=== PATIENT | male | born 1990 | race Caucasian/White ===

== ENCOUNTER 2018-07-30 07:34 | Emergency (ER) | payer BC, MEDICAID ==
[2018-07-30 07:48] VITALS: BP 132/66
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
== END 2018-07-30 10:30 | disposition home or self-care (01) ==
LOC: UCCORT 07:34
DX: S49.92XA Unspecified injury of left shoulder and upper arm, initial encounter (principal); R56.9 Unspecified convulsions; Z88.1 Allergy status to other antibiotic agents; Z79.899 Other long term (current) drug therapy; X58.XXXA Exposure to other specified factors, initial encounter; Y92.9 Unspecified place or not applicable
CPT/HCPCS: 99211; G0463

== ENCOUNTER 2018-10-26 23:06 | Observation (INO) | payer BC, MEDICAID ==
[2018-10-27 00:18] LABS: Hematocrit 44 % (42-52); Hemoglobin 15.2 g/dL (14.0-18.0); Mean Corpuscular HGB Conc 35 g/dL (31-36); Mean Corpuscular Hemoglobin 29 pg (27-31); Mean Corpuscular Volume 83 fL (80-94); Mean Platelet Volume 7.1 fL (7.4-10.4); Platelet Count 237 10^3/uL (150-450); Red Blood Count 5.25 10^6 /uL (4.18-5.48); Red Cell Distribution Width 14 % (10.5-15)
[2018-10-27 00:26] LABS: Activated Partial Thrombo Time 33.5 seconds (26.0-36.3); INR 1.2 (0.82-1.09)
[2018-10-27 00:32] LABS: Albumin 4.4 g/dL (3.2-5.2); Albumin/Globulin Ratio 1.3 (1-3); BUN/Creatinine Ratio 8.3 (8-20); Calcium 9.6 mg/dL (8.6-10.3); EGFR African American 111.3 (>60); Globulin 3.4 g/dL (2-4); Potassium 3.2 mmol/L (3.5-5.0); Total Bilirubin 0.5 mg/dL (0.2-1.0); Total Protein 7.8 g/dL (6.4-8.9)
[2018-10-27 01:19] LABS: ABS Basophils 0.1 10^3/ul (0-0.2); ABS Eosinophils 0.2 10^3/ul (0-0.6); ABS Lymphocytes 2.7 10^3/ul (1.0-4.8); ABS Monocytes 0.7 10^3/ul (0-0.8); ABS Neutrophils 3.4 10^3/ul (1.5-7.7); Eosinophil % 2.4 %; Lymphocyte % 38.2 %; Nucleated Red Blood Cells % 0.3
[2018-10-27] MEDS ORDERED: NS 0.9% 1000 ML** 1,000 ML IV ONE (01:30)
[2018-10-27] MEDS ORDERED: Morphine 4 MG/ML VIAL (1 ml) 4 MG/ML VIAL IV ONE (01:30)
[2018-10-27] MEDS ORDERED: Metoclopramide IV* 5 MG/ML 2 ML VIAL IV SLOW PU ONE (01:31)
[2018-10-27] MEDS ORDERED: Potassium Chlor TAB* 20 MEQ TAB.ER PO ONE (01:31)
[2018-10-27 01:43] LABS: C Reactive Protein 13.37 mg/L (<8.01)
[2018-10-27] MEDS ORDERED: Ondansetron INJ* 2 MG/ML VIAL IV ONE (02:22)
--- NOTE | 2018-10-27 02:39 | ED ---
Abdominal Pain/Male - HPI Summary HPI Summary: The patient is a 28 year old male who is presenting to the [facility] with chief complaints of abd pain along with Hematochezia. The patient reports of two episodes of hematochezia on 10/26/18. As per triage report, he also describes abnormal bowel movements for the past few days. The pain is described to be diffuse. Patient is currently on anti-seizure medication. PSHx does not include any hx regarding the patient's abd. He denies fevers at home. Symptoms are aggravated by nothing. Symptoms are alleviated by nothing. Pain is rated to be 7 /10 in severity. - History of Current Complaint Chief Complaint: EDGIBleed Stated Complaint: BLOOD IN STOOL PER PT Time Seen by Provider: 10/27/18 01:18 Hx Obtained From: Patient Onset/Duration: Sudden Onset, Still Present Severity Initially: Moderate Severity Currently: Moderate Pain Intensity: 7 Pain Scale Used: 0-10 Numeric Aggravating Factor(s): Nothing Alleviating Factor(s): Nothing Associated Signs And Symptoms: Positive: Negative - Allergies/Home Medications Allergies/Adverse Reactions: Allergies Allergy/AdvReac Type Severity Reaction Status Date / Time azithromycin Allergy Hives Verified 10/26/18 23:13 Home Medications: Home Medications Bacillus Coagulans [Ra Probiotic Gummies] 1 chw PO DAILY WITH MEAL 10/27/18 [ History Confirmed 10/27/18] Cyanocobalamin INJ * [Vitamin B12 INJ *] 1,000 mcg IM Q10D 10/27/18 [History Confirmed 10/27/18] Ergocalciferol CAP* [Drisdol CAP*] 50,000 unit PO WEEKLY 10/27/18 [History Confirmed 10/27/18] PMH/Surg Hx/FS Hx/Imm Hx Endocrine/Hematology History: Denies: Hx Diabetes Cardiovascular History: Denies: Hx Hypertension, Hx Pacemaker/ICD History: Denies: Hx Renal Disease Sensory History: Denies: Hx Hearing Aid Psychiatric History: Denies: Hx Panic Disorder - Surgical History Surgery Procedure, Year, and Place: TONSILS Infectious Disease History: No Infectious Disease History: Denies: Traveled Outside the [place] in Last 30 Days - Family History Known Family History: Positive: Non-Contributory Family History: Reviewed and Noncontributory - Social History Occupation: Employed Full-time Lives: With Family Alcohol Use: None Substance Use Type: Reports: None Smoking Status (MU): Never Smoked Tobacco Type: Smokeless Tobacco Amount Used/How Often: 1 can/day Review of Systems Negative: Fever Eyes: Negative ENT: Negative Cardiovascular: Negative Respiratory: Negative Gastrointestinal: Other - Hematochezia Positive: Abdominal Pain, Other - abnormal bowel movements Genitourinary: Negative Musculoskeletal: Negative Skin: Negative Neurological: Negative Psychological: Normal All Other Systems Reviewed And Are Negative: Yes Physical Exam - Summary Physical Exam Summary: VITAL SIGNS: Reviewed. GENERAL: Patient is a well-developed and nourished (MALE) who is lying comfortable in the stretcher. Patient is not in any acute respiratory distress. HEAD AND FACE: No signs of trauma. No ecchymosis, hematomas or skull depressions. No sinus tenderness. EYES: PERRLA, EOMI x 2, No injected conjunctiva, no nystagmus. EARS: Hearing grossly intact. Ear canals and tympanic membranes are within normal limits. MOUTH: Oropharynx within normal limits. NECK: Supple, trachea is midline, no adenopathy, no JVD, no carotid bruit, no c- spine tenderness, neck with full ROM CHEST: Symmetric, no tenderness at palpation LUNGS: Clear to auscultation bilaterally. No wheezing or crackles. CVS: Regular rate and rhythm, S1 and S2 present, no murmurs or gallops appreciated. ABDOMEN: Diffuse abd tenderness. No signs of distention. No rebound no guarding , and no masses palpated. Bowel sounds are normal. EXTREMITIES: FROM in all major joints, no edema, no cyanosis or clubbing. NEURO: Alert and oriented x 3. No acute neurological deficits. Speech is normal and follows commands. SKIN: Dry and warm Rectal exam: No hemorrhoids, Empty rectal, No masses Triage Information Reviewed: Yes Vital Signs On Initial Exam: Initial Vitals Temp Pulse Resp BP Pulse Ox 99.1 F 92 16 169/108 98 10/26/18 23:10 10/26/18 23:10 10/26/18 23:10 10/26/18 23:10 10/26/18 23:10 Vital Signs Reviewed: Yes Diagnostics - Vital Signs Vital Signs Temp Pulse Resp BP Pulse Ox 10/27/18 02:27 98.2 F 80 17 136/97 96 10/27/18 02:16 16 10/26/18 23:10 99.1 F 92 16 169/108 98 - Laboratory Lab Results: Lab Results 10/27/18 10/27/18 10/27/18 Range/Units 00:06 00:06 00:06 WBC 7.0 (3.5-10.8) 10^3/uL RBC 5.25 (4.18-5.48) 10^6 /uL Hgb 15.2 (14.0-18.0) g/dL Hct 44 (42-52) % MCV 83 (80-94) fL MCH 29 (27-31) pg MCHC 35 (31-36) g/dL RDW 14 (10.5-15) % Plt Count 237 (150-450) 10^3/uL MPV 7.1 L (7.4-10.4) fL Neut % (Auto) 48.2 % Lymph % (Auto) 38.2 % [place] % (Auto) 10.5 % Eos % (Auto) 2.4 % Baso % (Auto) 0.7 % Absolute Neuts (auto) 3.4 (1.5-7.7) 10^3/ul Absolute Lymphs (auto) 2.7 (1.0-4.8) 10^3/ul Absolute Monos (auto) 0.7 (0-0.8) 10^3/ul Absolute Eos (auto) 0.2 (0-0.6) 10^3/ul Absolute Basos (auto) 0.1 (0-0.2) 10^3/ul Absolute Nucleated RBC 0.0 10^3/ul Nucleated RBC % 0.3 INR (Anticoag Therapy) 1.20 H (0.82-1.09) APTT 33.5 (26.0-36.3) seconds Sodium 134 L (135-145) mmol/L Potassium 3.2 L (3.5-5.0) mmol/L Chloride 101 (101-111) mmol/L Carbon Dioxide 24 (22-32) mmol/L Anion Gap 9 (2-11) mmol/L BUN 8 (6-24) mg/dL Creatinine 0.96 (0.67-1.17) mg/dL Est GFR ( Amer) 111.3 (>60) Est GFR (Non-Af Amer) 92.0 (>60) BUN/Creatinine Ratio 8.3 (8-20) Glucose 105 H (70-100) mg/dL Calcium 9.6 (8.6-10.3) mg/dL Total Bilirubin 0.50 (0.2-1.0) mg/dL AST 19 (13-39) U/L ALT 34 (7-52) U/L Alkaline Phosphatase 88 (34-104) U/L C-Reactive Protein 13.37 H (<8.01) mg/L Total Protein 7.8 (6.4-8.9) g/dL Albumin 4.4 (3.2-5.2) g/dL Globulin 3.4 (2-4) g/dL Albumin/Globulin Ratio 1.3 (1-3) Result Diagrams: 10/27/18 00:06 10/27/18 00:06 Lab Statement: Any lab studies that have been ordered have been reviewed, and results considered in the medical decision making process. - CT CT A/P CT Interpretation Completed By: Radiologist Summary of CT Findings: CT A./P reveals as per radiologist 1. Mild mucosal thickening of the distal stomach and proximal small bowel which. is nonspecific however may be seen in gastroenteritis. 2. A small hiatal hernia. 3. Hepatosplenomegaly. Hepatic steatosis. The ED Physician has reviewed this radiology report. Abdominal Pain Male Course/Dx - Course Course Of Treatment: The patient is a 28 year old male who is presenting to the [facility] with a chief complaint of abd pain. He also reports of hematochezia. Rectal Exam showed no remarkable findings. Abd exam showed mild diffusion. A CT A/P was taken in the [facility]. The patient did however pass another stool in which there was evidence of blood in the stool. We discussed the case with Dr. Amanda and she accepts patient care ([id number]). The patient will be admitted to the [facility] with a dx of enteritis and GI bleed. - Diagnoses Provider Diagnoses: Enteritis, GI bleed Discharge - Sign-Out/Discharge Documenting (check all that apply): Patient Departure - Discharge Home Patient Received Moderate/Deep Sedation with Procedure: No - Discharge Plan Condition: Stable Disposition: HOME Prescriptions: Levofloxacin TAB* [Levaquin TAB*] 500 mg PO DAILY #7 tab metroNIDAZOLE [Flagyl 500 MG TAB] 500 mg PO TID #20 tab oxyCODONE/Acetamin 5/325 MG* [Percocet 5/325 TAB*] 1 tab PO Q6H PRN #14 tab MDD 4 PRN Reason: Pain oxyCODONE/Acetamin 5/325 MG* [Percocet 5/325 TAB*] 1 tab PO Q6H PRN #14 tab MDD 4 PRN Reason: Pain Patient Education Materials: Enteritis (ED) Referrals: [facility] [Outside] Additional Instructions: RETURN TO THE EMERGENCY DEPARTMENT FOR CHANGING OR WORSENING SYMPTOMS. FOLLOW UP WITH YOUR PRIMARY CARE PROVIDER WITHIN ONE TO TWO DAYS - Attestation Statements Document Initiated by Dioniibe: Yes Documenting Scribe: Dionte Mccain Provider For Whom Dioniibe is Documenting (Include Credential): Dr. Fabiana Haney Scribe Attestation: I, Dionte Mccain, scribed for Dr. Fabiana Haney on 10/27/18 at 0613. Status of Scribe Document: Ready
[2018-10-27] MEDS ORDERED: Iohexol 300* (CONTRAST) 10 ML SDV IV ONE (03:10)
[2018-10-27] MEDS ORDERED: Levofloxacin TAB* 500 MG PO ONE (05:45)
[2018-10-27] MEDS ORDERED: metroNIDAZOLE TAB* 250 MG PO ONE (05:46)
[2018-10-27] MEDS ORDERED: Levofloxacin 500 MG IVPREMIX(* 500 MG/100 ML BAG IVPB ONE (05:59)
[2018-10-27] MEDS ORDERED: metroNIDAZOLE IV 500 MG/100ML* 500 MG/100 ML BAG IVPB ONE (06:00)
[2018-10-27] MEDS ORDERED: Pantoprazole IV* 40 MG IV ONE (06:01)
[2018-10-27] MEDS ORDERED: Ondansetron INJ* 2 MG/ML VIAL IV PRN (06:22)
[2018-10-27] MEDS ORDERED: Al Hydrox/Mg Hydrox/Simet LIQ* 30 ML UDC PO PRN (06:22)
[2018-10-27] MEDS ORDERED: Pantoprazole* 80 mg IN NS 80 MG/250 ML BAG IVPB SCH (06:30)
[2018-10-27] MEDS ORDERED: NS 0.9% 1000 ML** 1,000 ML IV SCH (06:30)
[2018-10-27] MEDS: Acetaminophen TAB* 325 MG PO PRN ×2 (08:29→13:05)
[2018-10-27] MEDS ORDERED: lamoTRIgine TAB(*) 100 MG PO SCH (09:00)
[2018-10-27] MEDS ORDERED: levETIRAcetam TAB* 500 MG PO SCH (09:00)
[2018-10-27] MEDS ORDERED: Pantoprazole TAB * 40 MG TAB PO SCH (09:00)
--- NOTE | 2018-10-27 09:39 | HP ---
HISTORY AND PHYSICAL: DATE OF ADMISSION: 10/27/18 TIME OF EVALUATION: 0600 PRIMARY CARE PHYSICIAN: The patient does not have a primary care physician. CHIEF COMPLAINT: Abdominal pain, diarrhea, bloody stools. HISTORY OF PRESENT ILLNESS: This is a 28-year-old male with a past medical history seizures order and morbid obesity, who presented to the emergency room with 2 days of bloody stool. The patient started with loose diarrhea on 10/24/18, developed a temperature the following day, continued to have diarrhea and fevers off and on with nausea and epigastric pain. Last night , he developed bright red blood with clots in addition to liquidy stools. He came to the emergency room for further evaluation for the bleeding. He had two bowel movements of liquidy stools in the emergency room, one was with bright red blood. He has had heartburn, indigestion, epigastric pain, radiating down to his lower abdomen. He has been able to tolerate p.o. without any issues. No rash. No chest pain or shortness of breath. No changes in his weight. No sick contacts otherwise. Review of systems negative. In the emergency room, the patient had labs and imaging. He was given Reglan 10 mg, Morphine 4 mg, Zofran 8 mg, Protonix 80 mg, potassium chloride 40 mEq and 1 L of fluid and referred to the hospital service for further evaluation. PAST MEDICAL HISTORY: 1. Seizures. 2. Prediabetes. 3. Morbid obesity. MEDICATIONS: 1. Keppra 500 mg p.o. b.i.d. 2. Lamictal 250 mg p.o. b.i.d. ALLERGIES: AZITHROMYCIN. SOCIAL HISTORY: The patient lives at home with his , who is his healthcare proxy. He works as an amusement equipment operator. He chews tobacco routinely. No alcohol, smoking or illicit drug use. Code status, full code. REVIEW OF SYSTEMS: The 14-point review of systems mentioned in the HPI, otherwise negative. FAMILY HISTORY: Parents are alive and healthy. Mother has diabetes. PHYSICAL EXAMINATION GENERAL: In no acute distress. Resting comfortably with his at the bedside. VITAL SIGNS: Temp T-max 99.1, pulse rate 71, respiratory rate 16, and oxygen saturation 97% on room air. Blood pressure 119/62. HEENT: Head normocephalic. Pupils are equal and reactive, anicteric. Oropharynx: Mucous membranes is moist. No lesions or ulcers. NECK: Supple. No lymphadenopathy. RESPIRATORY: Clear to auscultation. No wheezing, rhonchi or rales. CARDIAC: Regular rate and rhythm. Soft systolic murmur heard throughout. ABDOMEN: Hypoactive bowel sounds, soft, morbidly obese. Some mild tenderness in the epigastric region. No rebound or guarding. EXTREMITIES: No clubbing, cyanosis or edema. +1 DPs. NEUROLOGIC: Alert and oriented x3. No gross focal neurologic deficits. DIAGNOSTIC STUDIES/LAB DATA: Laboratory Data: White count 7, hemoglobin 15.2 , hematocrit 44, platelets 237. INR is 1.2. Sodium 134, potassium 3.2, chloride 101, bicarb 24, BUN 8, creatinine 0.96, glucose 105. CRP is 13.37. Radiographic Data: Abdomen and pelvis CT, mild mucosal thickening of the distal stomach and proximal small bowel, which is nonspecific, however, may be seen in gastroenteritis. A small hiatal hernia, hepatosplenomegaly, hepatic steatosis. ASSESSMENT: This is a 28-year-old male with past medical history of morbid obesity, who presented to the emergency room with several days of low-grade fever and diarrhea, now with bright red blood per rectum x2 days. 1. Diarrhea with bloody stools. Assessment: The patient with a normal H and H on arrival with normal vitals. The concern was that he had another episode in the emergency room of bright red bloody stools. I suspect this is most likely internal hemorrhoids and less likely a diverticular bleed. His CAT scan is suggestive of gastroenteritis. Plan: We will admit him for observation. IV fluids, clear liquids, advance as tolerated. We will hold off on further antibiotics in the setting of no white count and repeat his H and H at noon. Monitor his output, if his H and H is stable and no further bloody stools, consider discharge later today. 2. Chronic medical problems, seizure disorder. Continue his home Keppra and Lamictal as scheduled. 3. FEN. Clear liquid diet., advance as tolerated. We will continue him on normal saline at 125 cc/hour. 4. DVT prophylaxis. The patient scores low risk. We will encourage ambulation. 5. Code status. Full code. PATIENT TIME: Greater than 30 minutes was spent doing the history and physical , half the time spent in direct patient contact. [id number]/[facility] #: [id number] CARLYN
[2018-10-27 12:44] LABS: Hematocrit 39 % (42-52); Hemoglobin 13.7 g/dL (14.0-18.0)
[2018-10-27 14:04] LABS: Erythrocyte Sed Rate 16 mm/Hr (0-14)
[2018-10-27] MEDS ORDERED: fentaNYL* 50 MCG/ML 2 ML VIAL (100 MCG VIAL) ONE (15:28)
[2018-10-27] MEDS ORDERED: Midazolam* 1 MG/ML 10 ML VIAL (10 MG) ONE (15:29)
[2018-10-27 17:08] VITALS: BP 126/62
--- NOTE | 2018-10-27 22:36 | PRO ---
DATE: 10/27/18 - ROOM #332 REFERRING PHYSICIAN: Nuris Garza * PROCEDURE: Flexible sigmoidoscopy unprepped to 55 to 60 cm. INDICATION: This 28-year-old man came to the emergency room complaining of diarrhea and rectal bleeding. He had been feeling nonspecifically ill for 4 to 5 days, though could not put his finger on it. There had been no overt fever or vomiting. In the emergency room, his hemoglobin was 16, BUN 8. Stool cultures are pending. Informed consent was obtained. ENDOSCOPIST: Dr. Hi. MEDICATION: Midazolam and fentanyl, moderate sedation performed. FINDINGS: He is a morbidly obese man in no overt distress. He took quite a long time to wake up when initially interviewed 2 hours ago. The abdomen is symmetric, soft, and nontender. Perianal inspection and rectal are normal. Initial views show normal mucosa and broken up pieces of stool, small, medium, and large. Stool is rather broken up in the sigmoid. There is a fair amount of solid stool, light in color. No blood is seen. In the upper sigmoid, there may be some diverticula though it is not fully clear. No clots are seen, no active bleeding, and no old blood either. Mucosa appears uniformly normal. Above 55 or 60 cm, there was clearly flat to solid stool and there was no indication to push further. During withdrawal, there are no additional findings. Does have a mildly prominent venous pattern seen in retroflexion. IMPRESSION: 1. Minimal internal hemorrhoids. 2. Otherwise normal unprepped flexible sigmoidoscopy. 3. 5-day illness - source unclear, though GI bleeding is not a major portion of this. Cautious reintroduction of diet and observation for whatever symptom becomes most prominent seems reasonable. [id number]/[facility] #: [id number] [facility]
--- NOTE | 2018-10-27 23:50 | DS ---
DISCHARGE SUMMARY: DATE OF ADMISSION: 10/27/18 DATE OF DISCHARGE: 10/27/18 PRIMARY CARE PROVIDER: None. ATTENDING PHYSICIAN: Dr. Ailyn Garcia * (dictated by Siva Pulido NP). PRIMARY DIAGNOSES: 1. Gastroenteritis. 2. Internal hemorrhoids. SECONDARY DIAGNOSES: 1. Seizure disorder. 2. Morbid obesity. STUDIES WHILE IN THE HOSPITAL: Abdomen/pelvis CT on 10/27/18 reads as mild mucosal thickening of the distal stomach and proximal small-bowel, which is nonspecific; however, may be seen in gastroenteritis. A small hiatal hernia. Hepatosplenomegaly. Hepatosteatosis. HISTORY OF PRESENT ILLNESS AND HOSPITAL COURSE: Mr. Barrera is a 28-year-old male with past medical history of seizure disorder, prediabetes, and morbid obesity who presented to the emergency room on 10/27/18 with complaints of abdominal pain, diarrhea, and bloody stool. Please see the history and physical by Dr. Amanda for complete summary of the events leading up to this hospitalization. In short, the patient began having diarrhea on 10/24/18 with a reported fever at home. He developed nausea and epigastric pain in the night prior to presentation to the emergency room. He developed some bright red blood in his stool, which prompted him to come to the emergency room. In the emergency room, he was noted to have 2 liquid bowel movements, one of which had bright red blood. In the emergency room, he had imaging as noted above. He had lab work, which revealed a normal hemoglobin and hematocrit and some mild hypokalemia. Vitals were stable. Because of the excessive GI bleed, he was admitted by the hospitalist service. The patient had an uneventful night. He did report some additional episodes of bloody diarrhea, though the patient's felt as though the blood was decreasing and the overall appearance of his bowel movements was improving. The patient has been placed on clear liquids and was tolerating those well, though he was requesting solid food when I saw him this morning. He did continue to report abdominal pain, though felt as though this was improved from the prior day. Because there was continued bleeding, I did consult gastroenterology. Dr. Hi saw the patient and ultimately did a flex sigmoidoscopy on him today, which was unremarkable and showed a normal colon. At this point, it is presumed that the abdominal pain and diarrhea were secondary to gastroenteritis, which was supported by the findings on CT, and the bleeding is secondary to internal hemorrhoids. It is likely that the diarrhea from his gastroenteritis exacerbated the hemorrhoids; hence, causing these bloody stools. I did speak with the patient's after his sigmoidoscopy. The patient was still drowsy at this point, though I did let her know that we would plan on giving the patient a regular diet for dinner and as long as he tolerated that, he would be discharged this evening. The was agreeable to this and felt as though the patient would also be agreeable to discharge as he was feeling much better. I will note that when I did see the patient early this morning, he had hyperactive bowel sounds. His abdomen was large, soft, and tender in the midline lower abdomen. Mr. Roy is stable for discharge today. Vital signs are as follows: Temp 97.8, heart rate 63, respiratory rate 16, oxygen saturation 99% on room air, blood pressure 126/62. DISCHARGE MEDICATIONS: New Medication: 1. Ondansetron 4 mg p.o. q.6 hours p.r.n. for nausea and vomiting. Continued Medications: 1. Probiotic 1 cap p.o. daily. 2. Vitamin B12 at 1000 mcg IM every 10 days. 3. Ergocalciferol 50,000 units p.o. weekly. 4. Lamictal 200 mg p.o. b.i.d. 5. Keppra 750 mg p.o. b.i.d. DISCHARGE PLAN: Mr. Barrera will be discharged to his home. Activity will be as tolerated. Diet will be regular as tolerated. Medications are noted above. I have prescribed a small supply of ondansetron for any residual nausea that the patient may have. I will note that the patient was initially going to be discharged from the emergency room last night and at that point, scripts were sent in for ciprofloxacin and Flagyl for presumed diverticulitis, though the patient does not need to complete these antibiotics at this point as there is no evidence of diverticulitis or bacterial infection. He can continue his other usual medications as noted above and I have not made any further changes. He does not currently have a PCP, but I have advised his that it is important that he follow up with a PCP. It appears as though he does follow with an senior wind turbine technician, so he potentially could follow up with his senior wind turbine technician in the next 4 to 7 days. He has been advised to return to the emergency room or nearest hospital for any worsening of symptoms, shortness of breath, lightheadedness, dizziness, chest discomfort, high fever, chills, night sweats, loss of consciousness, or any other worrisome signs or symptoms. DISCHARGE CONDITION: Stable. DISCHARGE DISPOSITION: Home. This is a summarized report of a complex medical history and hospital stay. For further details, please see the entire medical record. TIME SPENT: Approximately 45 minutes were spent on this discharge. SIVA PULIDO, OFFICE COPY SELECTOR [id number]/[facility] #: [id number] CARLYN
== END 2018-10-27 19:30 | disposition home or self-care (01) ==
LOC: ED 23:06 → SSU 10-27 06:22
PROVIDERS: ADMIT Pediatrics; ATTEND Hospitalist
DX: K52.9 Noninfective gastroenteritis and colitis, unspecified (principal); K64.8 Other hemorrhoids; G40.909 Epilepsy, unspecified, not intractable, without status epilepticus; E66.01 Morbid (severe) obesity due to excess calories; R10.9 Unspecified abdominal pain; R73.03 Prediabetes; K62.5 Hemorrhage of anus and rectum
CPT/HCPCS: 36415; 74177; 80053; 82270; 83630; 85014; 85018; 85025; 85610; 85652; 85730; 86140; 87045; 87046; 87077; 87493; 87899; 96361; 96374; 96375; 99156; 99283; A9270-GY; G0378; J1956; J2250; J2270; J2405; J2765; J3010; J3490; Q9967